=== PATIENT | female | born 1975 | race Caucasian/White ===

== ENCOUNTER 2017-09-15 09:50 | Emergency (ER) | payer BC ==
[2017-09-15 10:16] VITALS: TEMP 97.7
[2017-09-15 11:07] VITALS: BMI 21.1
--- NOTE | 2017-09-15 11:12 | ED PDOC ---
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 The patient reports her neck begins to spasm before the stiffness begins. She also notes her legs have been feeling heavier than usual. She denies abdominal pain, chest pain, headaches, dysuria, or any other complaints at this time. Time/Duration: < week Symptom Onset: Gradual Symptom Course: Unchanged Activities at Onset: Light Context: Home Past Medical History - Provider Review Nursing Documentation Reviewed: Yes - Travel History Have you recently traveled outside [place] w/in the past 3 mons?: No - Past History Past History: No Previous - Infectious Disease Hx of Infectious Diseases: None - Tetanus Immunization Tetanus Immunization: Unknown - Reproductive Menopause: No - Cardiac Hx Cardiac Disorders: No - Pulmonary Hx Respiratory Disorders: No - Neurological Hx Neurological Disorder: No - HEENT Hx HEENT Disorder: No - Renal Hx Renal Disorder: No - Endocrine/Metabolic Hx Hypothyroidism: Yes - Hematological/Oncological Hx Cancer: Yes (NASOPHARYNGEAL) Hx Chemotherapy: Yes - Integumentary Hx Dermatological Disorder: No - Musculoskeletal/Rheumatological Hx Musculoskeletal Disorders: No Hx Falls: No - Gastrointestinal Hx Gastrointestinal Disorders: No - Genitourinary/Gynecological Hx Genitourinary Disorders: No - Psychiatric Hx Depression: No Hx Emotional Abuse: No Hx Physical Abuse: No Hx Substance Use: No - Surgical History Hx Tonsillectomy: Yes - Anesthesia Hx Anesthesia: Yes - Suicidal Assessment Feels Threatened In Home Enviroment: No Family/Social History - Physician Review Nursing Documentation Reviewed: Yes Family/Social History: Unknown Family HX Smoking Status: Never Smoked Hx Alcohol Use: No Hx Substance Use: No Hx Substance Use Treatment: No Allergies/Home Meds Allergies/Adverse Reactions: Allergies No Known Allergies Allergy (Verified 11/02/16 23:25) Review of Systems - Physician Review All systems were reviewed & negative as marked: Yes - Review of Systems Cardiovascular: absent: Chest Pain Gastrointestinal: absent: Abdominal Pain Genitourinary Female: absent: Dysuria Musculoskeletal: Neck Pain, Other (bilateral leg cramping) Neurological: absent: Headache Physical Exam Vital Signs Reviewed: Yes Vital Signs Temp Pulse Resp BP Pulse Ox 09/15/17 12:38 142/97 H 09/15/17 12:04 79 18 142/97 H 98 09/15/17 10:11 97.7 F 81 16 160/111 H 99 Temperature: Afebrile Blood Pressure: Hypertensive Pulse: Regular Respiratory Rate: Normal Appearance: Positive for: Well-Appearing, Non-Toxic, Comfortable Pain Distress: None Mental Status: Positive for: Alert and Oriented X 3 - Systems Exam Head: Present: Atraumatic, Normocephalic Pupils: Present: PERRL Extroacular Muscles: Present: EOMI Conjunctiva: Present: Normal Mouth: Present: Moist Mucous Membranes Neck: Present: Normal Range of Motion, Other (questionable sternocleidomastoid muscle spasm like movement) Respiratory/Chest: Present: Clear to Auscultation, Good Air Exchange. No: Respiratory Distress, Accessory Muscle Use Cardiovascular: Present: Regular Rate and Rhythm, Normal S1, S2. No: Murmurs Abdomen: Present: Normal Bowel Sounds. No: Tenderness, Distention, Peritoneal Signs Back: Present: Normal Inspection Upper Extremity: Present: Normal Inspection. No: Cyanosis, Edema Lower Extremity: Present: Normal Inspection. No: Edema Neurological: Present: GCS=15, CN II-XII Intact, Speech Normal Skin: Present: Warm, Dry, Normal Color. No: Rashes Psychiatric: Present: Alert, Oriented x 3, Normal Insight, Normal Concentration Medical Decision Making ED Course and Treatment: 09/15/17 11:19 Impression: A 42 year old with neck stiffness and leg cramps. Differential Diagnosis included but are not limited to: muscle spasm vs. electrolyte disorder vs. hypokalemia vs. hypomagnesemia Plan: -- Labs -- Valium -- Reassess and disposition Progress Notes: 09/15/17 12:27 Electrolytes are within normal limits like this is muscle spasm versus torticollis patient will be discharged with a prescription of Valium. No focal deficits to suggest TIA or CVA, no hyperreflexia to suggest MS or a need for central nervous system imaging 09/15/17 14:19 - Lab Interpretations Lab Results: 09/15/17 11:50 Lab Results 09/15/17 11:50: Sodium 140, Potassium 4.3, Chloride 102, Carbon Dioxide 31, Anion Gap 11, BUN 22 H, Creatinine 0.9, Est GFR ( Amer) > 60, Est GFR ( Non-Af Amer) > 60, Random Glucose 89, Calcium 10.0, Magnesium 1.9 I have reviewed the lab results: Yes - Medication Orders Current Medication Orders: Discontinued Medications Diazepam (Valium) 5 mg PO ONCE ONE PRN Reason: Protocol Stop: 09/15/17 11:02 Last Admin: 09/15/17 11:56 Dose: 5 mg - Scribe Statement The provider has reviewed the documentation as recorded by the Miriamibmartha Real Provider Scribe Attestation: All medical record entries made by the Miriamibe were at my direction and personally dictated by me. I have reviewed the chart and agree that the record accurately reflects my personal performance of the history, physical exam, medical decision making, and the department course for this patient. I have also personally directed, reviewed, and agree with the discharge instructions and disposition. Disposition/Present on Arrival - Present on Arrival Any Indicators Present on Arrival: No History of DVT/PE: No History of Uncontrolled Diabetes: No Urinary Catheter: No History of Decub. Ulcer: No History Surgical Site Infection Following: None - Disposition Have Diagnosis and Disposition been Completed?: Yes Diagnosis: Muscle spasm, Hypertension Disposition: HOME/ ROUTINE Disposition Time: 12:24 Patient Plan: Discharge Patient Problems: Current Active Problems Problem Status Onset Hypertension Acute Muscle spasm Acute Condition: IMPROVED Discharge Instructions (ExitCare): Hypertension (ED), Muscle Spasm (ED) Print Language: TAJIK Additional Instructions: Your blood pressure was elevated today please follow up with her primary physician for blood pressure control Prescriptions: diaZEpam [Valium] 5 mg PO Q8 PRN #12 tab PRN Reason: Muscle Spasm Forms: [facility] [facility] (Martiniquais)
[2017-09-15 12:02] LABS: BLOOD UREA NITROGEN 22 mg/dL (7-21); CARBON DIOXIDE 31 mmol/L (21-33); CHLORIDE 102 mmol/L (95-110); GFR AFRICAN-AMERICAN > 60; GLUCOSE,RANDOM 89 mg/dL (70-110); MAGNESIUM 1.9 mg/dL (1.7-2.2); POTASSIUM 4.3 mmol/L (3.6-5.0); SODIUM 140 mmol/L (132-148)
[2017-09-15 12:05] VITALS: PULSE 79; RESP 18; O2SAT 98
[2017-09-15 12:33] VITALS: BP 142/97
== END 2017-09-15 12:38 | disposition home or self-care (01) ==
LOC: ED 09:50
DX: I10 Essential (primary) hypertension (principal); M62.838 Other muscle spasm; E03.9 Hypothyroidism, unspecified